=== PATIENT | male | born 1955 | race African-American/Black ===

== ENCOUNTER → 2017-10-06 | Outpatient (CLI) | payer OTHER ==
[~2017-10-06] MED LIST: IBUPROFEN 800800 M1 PO; TOPROL XL25 MG PO
== END ==
LOC: M.RAD 09:22
DX: M51.36 Other intervertebral disc degeneration, lumbar region (principal); M51.37 Other intervertebral disc degeneration, lumbosacral region; M48.16 Ankylosing hyperostosis [Forestier], lumbar region; M48.061 Spinal stenosis, lumbar region without neurogenic claudication; M46.06 Spinal enthesopathy, lumbar region

== ENCOUNTER → 2018-02-16 | Outpatient (CLI) | payer OTHER | LOC: M.ULTRA 01-30 14:31 | DX: F17.200 Nicotine dependence, unspecified, uncomplicated (principal); R09.89 Other specified symptoms and signs involving the circulatory and respiratory systems ==